=== PATIENT | female | born 1960 | race Caucasian/White ===

== ENCOUNTER 2019-05-15 09:08 | Emergency (ER) | payer OTHER, SELFPAY ==
[2019-05-15 09:10] VITALS: BP 94/55; PULSE 63; RESP 16; TEMP 36.7; O2SAT 93; BMI 27.1
--- NOTE | 2019-05-15 09:14 | NURSING ---
NO OLD EKGS
--- NOTE | 2019-05-15 09:24 | EKG12_ITS ---
Test Reason : CP Blood Pressure : / mmHG Vent. Rate : 053 BPM Atrial Rate : 053 BPM P-R Int : 158 ms QRS Dur : 080 ms QT Int : 452 ms P-R-T Axes : 060 046 087 degrees QTc Int : 424 ms Sinus bradycardia Nonspecific ST and T wave abnormality Abnormal ECG Confirmed by KYLER VANCE, CARSON ([id number]), make up editor RADHA ALDRIDGE ([id number]) on 05/22/2019 9:34:01 A M Referred By: PENG Confirmed By:OTILIA CHÁVEZ MD
--- NOTE | 2019-05-15 09:25 | CT_ITS ---
We are attempting to reach an attending provider to discuss findings. An addendum with communication details will be sent when the communication is complete. STUDY: CTA OF THE ABDOMINAL AORTA AND BILATERAL LOWER EXTREMITIES REASON FOR EXAM: Female, 58 years old. RADIATION DOSAGE (If Supplied By Facility): CTDIvol = ( 9.96 ) mGy, DLP = ( 808.91 ) mGycm TECHNIQUE: Axial CT angiography multi-detector data acquisition was obtained from the aortic arch to the aortic bifurcation following intravenous administration of IV Isovue 370 100. Axial images and MIP images were reconstructed from the axial data set. Post-processing of the angiographic images was performed, with multiplanar reformation and 3D reconstruction. Individualized dose optimization techniques were used for this CT. TECHNICAL QUALITY: Good COMPARISON: None. Descriptors of Narrowing: None (0%) Mild (< 50%) Moderate (50-70%) Severe (70-90%) Subtotal/Total Occlusion (90-100%) Non-Evaluable (technically non-diagnostic FINDINGS: The pulmonary parenchyma was carefully examined and appears to be normal. The heart is normal. There is extensive aortic dissection extending from the ascending aorta through the aortic arch. The ascending aorta measures 4.25 x 4.57 cm in maximal AP and transverse dimension. This dissection extends from the sinus of Valsalva superior through the aortic arch into the descending thoracic aorta there is a normal branch pattern of the aortic arch. Bone scanning windows through the thorax show the ribs and thoracic spine to be normal. No extrathoracic masses or lesions are seen. The visualized liver, spleen, and adrenals are normal.. Additional CT cuts were continued through the abdomen. The liver is normal. The spleen is normal. The adrenal glands are normal. The head, body, and tail of the pancreas are normal. The right kidney is normal with no evidence of calyceal calculi, masses, or obstructive uropathy seen. There is devascularization of the left kidney due to an extensive type III aortic dissection. .No periaortic lymphadenopathy is seen. No abdominal masses or lesions are identified. The aortic dissection including the true and false lumen are visualized. The celiac axis originates off the true lumen and the superior mesenteric artery also originates off the true lumen. The right renal artery originates off the true lumen but there is occlusion of the origin of the left renal artery, with devascularization of the right kidney. Inferior mesenteric artery appears to be patent and probably originates off of the true lumen of the aortic dissection. The aortic dissection extends inferiorly and appears to be causing about 95% occlusion of the origin of the left common iliac artery. The distal left common iliac artery reconstitutes in the right common iliac artery appears to be normal. The external iliac arteries appear patent but the left external iliac and common femoral artery are small. The right superficial femoral artery is patent down to the level of the popliteal artery and the arteries of the right trifurcation are visualized. On the left side, there appears to be thrombotic occlusion of the distal left superficial femoral artery at the junction of the left superficial femoral artery and popliteal artery and no peripheral arterial runoff into the left lower extremity is seen. CT/CTA Abd w/Runoff W/WO Contrast IMPRESSION: 1. Extensive type III aortic dissection involving the ascending aorta, aortic arch, descending aorta and the abdominal aorta extending down into the left common iliac artery at its origin probably causing 95% stenosis of this vessel. 2. Thrombotic occlusion and a devascularization of the left kidney. 3. Extensive aortic dissection extends down the abdominal aorta and is causing high-grade stenosis of the left common iliac artery. 4. Thrombotic occlusion of the distal left superficial femoral artery at its junction with the left popliteal artery with no peripheral arterial runoff in the distal left lower extremity. I personally visited the emergency room and called to the ER doctor, Dr. Hawkins and gave her the report at 10:15 AM on 05/15/2019. Electronically Signed: Slade Keenan, at 10:23 EDT Tel , Service support ,
--- NOTE | 2019-05-15 09:27 | ED.VIS.GEN ---
History of Present Illness Chief Complaint: Chest Pain Informant: Patient Onset: Today Context: Sudden Onset Timing: Intermittent Current Severity: Severe Maximum Severity: Severe Narrative: Is a 58-year-old female that denies any past medical history presenting from work for chest pain. Patient states she was at work when she suddenly had chest pain that radiated to her back. She states when she got here the chest pain resolved but then she started having pain in her left hip as well as weakness and loss of sensation in her left lower extremity. Patient states he is never had any like this before. She states she cannot move her left lower leg. Patient states she does not take any medications. She denies any other complaints at this time. She did have some associated shortness of breath with the chest pain started. Nursing notes on patient ride her left distal foot was white and cool. It improved when I saw her. Past Medical History - Allergies and Home Meds Allergies/Adverse Reactions: Allergies No Known Allergies Allergy (Verified 05/15/19 09:53) Primary Care Physician: Jerson Miller DO [Primary Care Provider] - Past Medical History: None Surgical History: no surgical history Smoking Status: Current every day smoker Review of Systems All systems negative except as indicated Cardiovascular: Reports: Chest pain Respiratory: Reports: Dyspnea Musculoskeletal: Reports: - - Left hip pain Neurological: Reports: Weakness - left LE, Parasthesia - left LE, Numbness - LLE Physical Exam Vital Signs/Narrative: Vital Signs Temp Pulse Resp BP Pulse Ox 05/15/19 09:10 98.1 F 63 16 94/55 L 93 Inital Vital Signs reviewed: Yes General: Well nourished, Well developed, No Acute Distress Head: Normocephalic, Atraumatic Eyes: Perrl, EOMI ENT: Moist mucous membranes, No rhinorrhea Neck: Supple, Nontender Cardiovascular: Regular rate, Regular rhythm, No murmurs, - - 2+ right femoral pulse, nonpalpable left femoral pulse Respiratory: No distress, Chest nontender, - - Course Breath sounds throughout Abdomen: Soft, Nontender, Nondistended, Normal bowel sounds. Negative for: Pulsatile mass Back: Nontender, Normal Inspection Extremities: Nontender, No edema Skin: No rash, Pallor - Left first through fourth toes Neurological: Alert, Oriented x3, Cranial nerves II-XII grossly intact, - - Patient unable to lift left lower leg off the bed and cannot wiggle her toes, foot drop to the bed immediately when raised, normal strength of the right lower extremity. Decreased sensation diffusely of the left lower extremity except to sharp touch Psychological: Normal affect, Normal Mood Diagnostic/Tx/Re-eval Laboratory Data 05/15/19 05/15/19 05/15/19 09:23 09:23 09:23 WBC 8.0 RBC 4.51 Hgb 13.1 Hct 39.8 MCV 88.2 MCH 29.0 MCHC 32.9 RDW Std Deviation 38.7 RDW Coeff of [place]uki 12.0 Plt Count 184 MPV 9.7 Immature Gran % (Auto) 0.200 Neut % (Auto) 66.6 Lymph % (Auto) 27.8 [place] % (Auto) 4.5 Eos % (Auto) 0.4 Baso % (Auto) 0.5 Absolute Neuts (auto) 5.4 Absolute Lymphs (auto) 2.23 Nucleated RBC % 0 PT 14.0 INR 1.1 APTT 24.7 Sodium 140 Potassium 3.8 Chloride 108 H Carbon Dioxide 27.0 Anion Gap 5 BUN 15 Creatinine 0.79 Estim Creat Clear Calc 55.76 Est GFR (MDRD) Af Amer 96 Est GFR (MDRD) Non-Af 79 BUN/Creatinine Ratio 19.0 Glucose 124 H Calcium 8.7 Total Bilirubin 0.40 AST 14 L ALT 16 Alkaline Phosphatase 89 Troponin I < 0.015 Total Protein 6.5 Albumin 3.5 Globulin 3.0 Albumin/Globulin Ratio 1.2 Urine Color Urine Clarity Urine pH Ur Specific [place] Urine Protein Urine Glucose (UA) Urine Ketones Urine Occult Blood Urine Nitrite Urine Bilirubin Urine Urobilinogen Ur Leukocyte Esterase 05/15/19 09:50 WBC RBC Hgb Hct MCV MCH MCHC RDW Std Deviation RDW Coeff of [place] Plt Count MPV Immature Gran % (Auto) Neut % (Auto) Lymph % (Auto) [place] % (Auto) Eos % (Auto) Baso % (Auto) Absolute Neuts (auto) Absolute Lymphs (auto) Nucleated RBC % PT INR APTT Sodium Potassium Chloride Carbon Dioxide Anion Gap BUN Creatinine Estim Creat Clear Calc Est GFR (MDRD) Af Amer Est GFR (MDRD) Non-Af BUN/Creatinine Ratio Glucose Calcium Total Bilirubin AST ALT Alkaline Phosphatase Troponin I Total Protein Albumin Globulin Albumin/Globulin Ratio Urine Color Yellow Urine Clarity Clear Urine pH 7.0 Ur Specific [place] 1.005 Urine Protein 30 H Urine Glucose (UA) Normal Urine Ketones Negative Urine Occult Blood Negative Urine Nitrite Negative Urine Bilirubin Negative Urine Urobilinogen Normal Ur Leukocyte Esterase Negative Diagnostic Data Abdomen/Pelvis CTA 05/15/19 09:25 IMPRESSION: 1. Extensive type III aortic dissection involving the ascending aorta, aortic arch, descending aorta and the abdominal aorta extending down into the left common iliac artery at its origin probably causing 95% stenosis of this vessel. 2. Thrombotic occlusion and a devascularization of the left kidney. 3. Extensive aortic dissection extends down the abdominal aorta and is causing high-grade stenosis of the left common iliac artery. 4. Thrombotic occlusion of the distal left superficial femoral artery at its junction with the left popliteal artery with no peripheral arterial runoff in the distal left lower extremity. I personally visited the emergency room and called to the ER doctor, Dr. Hawkins and gave her the report at 10:15 AM on 05/15/2019. Electronically Signed: Slade Keenan, at 10:23 EDT Tel , Service support , Chest CTA 05/15/19 09:25 IMPRESSION: 1. Extensive type III aortic dissection involving the ascending aorta, aortic arch, descending aorta and the abdominal aorta extending down into the left common iliac artery at its origin probably causing 95% stenosis of this vessel. 2. Thrombotic occlusion and a devascularization of the left kidney. 3. Extensive aortic dissection extends down the abdominal aorta and is causing high-grade stenosis of the left common iliac artery. 4. Thrombotic occlusion of the distal left superficial femoral artery at its junction with the left popliteal artery with no peripheral arterial runoff in the distal left lower extremity. I personally visited the emergency room and called to the ER doctor, Dr. Hawkins and gave her the report at 10:15 AM on 05/15/2019. Electronically Signed: Slade Keenan, at 10:23 EDT Tel , Service support , - Rhythm Strip Rhythm Strip: Sinus bradycardia Rate: 53 Ectopy: None - EKG Initial EKG Interpretation: Sinus Bradycardia, - - Sinus bradycardia at a rate of 53 MA interval 158 QRS 80 QT/QTc 452/[address] segments - Medical Decision Making She is evaluated for chest pain that radiated to her back. Upon arrival patient suddenly had loss of strength and sensation in her left lower extremity. On evaluation patient did not have a palpable femoral pulse. Patient was immediately sent to CT for rule out aortic dissection. Patient was hemodynamically stable and initially had low normal blood pressure and heart rate. CT initially interpreted by myself which did show a type a dissection. I immediately called the transfer line and discussed with the CVICU doctor. Patient will be out of wants to [facility]. Accepting physician is Dr. Cornejo. Patient started on IV fluids. Repeat vital signs show her blood pressure has increased to 136 systolic. Fluids are stopped and patient is started on esmolol drip. Patient does not have any significant change in her hemodynamics while in the emergency room and is stable at time of transfer. Signout report is given to [facility] for team. Patient is transferred emergently to [facility] by helicopter. Patient and son are informed of her diagnosis and that she will require emergent surgery. They are agreeable with this. - Critical Care Time Critical care time (excluding procedures): 30-74 minutes, Including time spent:, Discussing w/Patient &/or Family/Supervisor [employer], Discussing w/Consultants, Arranging Admission or Transfer ED Disposition - Plan for ED Patient: Disposition: [facility] - Main Diagnosis: Aortic dissection Referrals: Jerson Miller DO [Primary Care Provider] -
[2019-05-15 09:37] LABS: Absolute Lymphocyte Count 2.23 X10^3/uL (0.83-4.51); Absolute Neutrophil Count 5.4 X10^3/uL (2.0-7.7); Basophil# 0.04 X10^3/uL; Basophil% 0.5 % (0-1); Eosinophil# 0.03 X10^3/uL; Eosinophils% 0.4 % (0-5); Hematocrit 39.8 % (37-47); Hemoglobin 13.1 g/dL (12.0-15.0); Lymphocyte # 2.23 X10^3/ul (4.0); Lymphocyte % 27.8 % (19-41); Mean Corp Hgb Conc 32.9 g/dL (32-36); Mean Corpuscular Volume 88.2 fL (81-99); Mean Platelet Vol. 9.7 fl (6.2-12.0); Monocyte# 0.36 X10^3/uL; Monocyte% 4.5 % (0-10); NRBC Flagged by Analyzer 0 % (0-5); Neutrophil # 5.35 X10^3/uL (2.7-7.7); Neutrophil % 66.6 % (47-70); Platelet Count 184 K/mm3 (150-450); RBC Distribution Width SD 38.7 fl (35.1-43.9); Red Blood Count 4.51 M/mm3 (4.2-5.4)
--- NOTE | 2019-05-15 09:40 | NURSING ---
CALLING [facility], TALKED TO ARIA.
[2019-05-15] MEDS: 0.9% Normal Saline 1,000 ML 1000 ML IV (09:41)
[2019-05-15 09:47] LABS: International Normalized Ratio 1.1
--- NOTE | 2019-05-15 09:49 | NURSING ---
[facility] COMING IN 30 MIN
[2019-05-15 09:53] LABS: ALB/GLOB Ratio 1.2 RATIO (0.9-2.4); AST(SGOT) 14 U/L (15-37); Alanine Aminotransfer ALT/SGPT 16 U/L (13-56); Albumin, Serum 3.5 g/dL (3.2-5.0); Alkaline Phosphatase 89 U/L (45-117); Anion Gap 5 (5-15); BUN 15 mg/dL (7-18); Calcium,Total 8.7 mg/dL (8.5-10.1); Chloride 108 mmol/L (98-107); Creatinine, Serum 0.79 mg/dL (0.55-1.02); EST Glomerular Filtration Rate 79 mL/min (>60); Est Glom Filt Rate - Afr Amer 96 mL/min (>60); Estimated Creatinine Clearance 55.76 ml/min; Glucose 124 mg/dL (74-106); Partial Thromboplast Time 24.7 Seconds (24.1-36.2); Potassium 3.8 mmol/L (3.5-5.1); Protein, Total 6.5 g/dL (6.4-8.2); Sodium Level 140 mmol/L (136-145)
[2019-05-15 09:55] LABS: Bacteria 0 SEEN /hpf (None Seen); Mucous, Urine 0 SEEN /hpf (<or=2+); Red Blood Cells-Urine 0 SEEN /hpf (0-5); Squamous Epithelial Cells - UA 0 SEEN /hpf (5-10); White Blood Cells 0 SEEN /hpf (0-5)
[2019-05-15 10:01] LABS: Color, Urine Yellow (Yellow); Glucose, Dipstick Normal (Normal); Ketone-Dipstick Negative (Negative); Leukocyte Esterase-Dipstick Negative /ul (Negative); Nitrite-Dipstick Negative (Negative); Occult Blood-Urine Negative /ul (Negative); Protein-Dipstick 30 mg/dl (Negative); Specific Gravity, Urine 1.005 (1.002-1.030); Urine Bilirubin Dipstick Negative (Negative); Urine Clarity Clear (Clear); Urine Urobilinogen Normal (Normal)
[2019-05-15] MEDS: Morphine 4 MG/ML Syringe IV (10:03)
[2019-05-15 10:04] VITALS: BP 121/55; PULSE 68; RESP 14; O2SAT 99
[2019-05-15] MEDS: Esmolol 2,500 MG/250 ML IV.SOLN. 18.9 MG CONT INF (10:04)
[2019-05-15 10:09] VITALS: BP 119/58; PULSE 59; PULSE 69; RESP 12; RESP 17; O2SAT 99
[2019-05-15 10:14] VITALS: BP 129/56; PULSE 62; RESP 14; O2SAT 99
[2019-05-15 10:25] VITALS: BP 129/56; PULSE 64; RESP 17; O2SAT 99
== END 2019-05-15 10:25 | disposition short-term general hospital (02) ==
PROVIDERS: Emergency Provider Emergency Medicine; Family Provider Family Medicine; PCP Family Medicine
DX: I71.02 Dissection of abdominal aorta (principal); I71.01 Dissection of thoracic aorta; I71.03 Dissection of thoracoabdominal aorta; N28.0 Ischemia and infarction of kidney; I70.8 Atherosclerosis of other arteries; I82.412 Acute embolism and thrombosis of left femoral vein; F17.200 Nicotine dependence, unspecified, uncomplicated
CPT/HCPCS: 51702; 71275; 75635; 80053; 81001; 84484; 85025; 85610; 85730; 93005; 96365; 96374; 99285; J7030; Q9967; A4216

== ENCOUNTER 2019-06-10 14:34 | Emergency (ER) | payer OTHER, SELFPAY ==
[2019-06-10 14:35] VITALS: BP 136/78; PULSE 81; RESP 23; TEMP 37.3; O2SAT 96; BMI 25.0
--- NOTE | 2019-06-10 14:38 | EKG12_ITS ---
Test Reason : CP Blood Pressure : / mmHG Vent. Rate : 072 BPM Atrial Rate : 072 BPM P-R Int : 126 ms QRS Dur : 084 ms QT Int : 344 ms P-R-T Axes : 051 036 230 degrees QTc Int : 376 ms Normal sinus rhythm Possible Left atrial enlargement Left ventricular hypertrophy ST/T Wave Abnormality Consider LVH Repolarization; Myocardial Ischemia Abnormal ECG Confirmed by RADHA VANCE, MIKE ([id number]), editor sound RADHA ALDRIDGE ([id number]) on 06/12/2019 11:12:30 AM Referred By: PAULINA Confirmed By:MIKE GARCIA MD
[2019-06-10 15:10] LABS: Absolute Lymphocyte Count 2.25 X10^3/uL (0.83-4.51); Absolute Neutrophil Count 8.6 X10^3/uL (2.0-7.7); Basophil# 0.06 X10^3/uL; Basophil% 0.5 % (0-1); Eosinophil# 0.11 X10^3/uL; Eosinophils% 0.9 % (0-5); Hematocrit 35.6 % (37-47); Hemoglobin 11.4 g/dL (12.0-15.0); Lymphocyte # 2.25 X10^3/ul (4.0); Lymphocyte % 18.7 % (19-41); Mean Corpuscular Hgb 28.7 pg (27.0-32.0); Mean Corpuscular Volume 89.7 fL (81-99); Mean Platelet Vol. 9.2 fl (6.2-12.0); Monocyte# 0.93 X10^3/uL; Monocyte% 7.7 % (0-10); NRBC Flagged by Analyzer 0 % (0-5); Neutrophil # 8.64 X10^3/uL (2.7-7.7); Neutrophil % 71.7 % (47-70); Platelet Count 435 K/mm3 (150-450); RBC Distribution Width CV 13.1 % (11.6-14.6); RBC Distribution Width SD 42.9 fl (35.1-43.9); Red Blood Count 3.97 M/mm3 (4.2-5.4); White Blood Count 12.1 K/mm3 (4.4-11.0)
--- NOTE | 2019-06-10 15:30 | RAD_ITS ---
STUDY: X-RAY CHEST REASON FOR EXAM: Female, 58 years old. Back pain. Aortic aneurysm. TECHNIQUE: Single AP portable view of the chest. COMPARISON: None. FINDINGS: Small left pleural effusion with left basilar infiltrate. Small right pleural effusion. Sternal cerclage wires are present from a prior sternotomy. A clip device is seen in the region of the aortic valve. Normal mediastinum and beck. Normal visualized pulmonary arteries. A cavernous stent is seen in the region of the aortic arch. Normal visualized thoracic spine. Normal visualized ribs, clavicles, and shoulders. There is no demonstrated abnormality of the visualized soft tissue structures of the upper abdomen. RAD/Chest 1 View (Portable) IMPRESSION: Small bilateral pleural effusions with left basilar infiltration and/or atelectasis. Electronically Signed: Evan Simon, at 15:51 EST , Service support ,
[2019-06-10 15:33] LABS: ALB/GLOB Ratio 0.7 RATIO (0.9-2.4); AST(SGOT) 36 U/L (15-37); Alanine Aminotransfer ALT/SGPT 46 U/L (13-56); Albumin, Serum 3.3 g/dL (3.2-5.0); Alkaline Phosphatase 128 U/L (45-117); Anion Gap 8 (5-15); BUN 18 mg/dL (7-18); BUN/Creat Ratio 21.4 RATIO (10-20); Calcium,Total 9.6 mg/dL (8.5-10.1); Chloride 97 mmol/L (98-107); Creatinine, Serum 0.84 mg/dL (0.55-1.02); EST Glomerular Filtration Rate 74 mL/min (>60); Est Glom Filt Rate - Afr Amer 89 mL/min (>60); Estimated Creatinine Clearance 52.44 ml/min; Globulin 4.9 g/dL (2.2-4.2); Glucose 87 mg/dL (74-106); Potassium 3.8 mmol/L (3.5-5.1); Protein, Total 8.2 g/dL (6.4-8.2); Sodium Level 137 mmol/L (136-145)
--- NOTE | 2019-06-10 15:45 | CT_ITS ---
STUDY: CTA CHEST REASON FOR EXAM: Female, 58 years old. Back pain. Previous aortic dissection. RADIATION DOSAGE (If Supplied By Facility): CTDIvol = ( 5.26 ) mGy, DLP = ( 242.77 ) mGycm TECHNIQUE: The examination was performed with the intravenous administration of IV Isovue 370 100CC. Post-processing of the angiographic images was performed, with multiplanar reformation and 3D reconstruction. Individualized dose optimization techniques were used for this CT. COMPARISON: 05/15/2019. FINDINGS: Since previous exam the patient has had stent graft repair of thoracic aortic dissection. Stent graft is seen extending from the origin of the left carotid artery down to the proximal descending thoracic aorta. An additional stent is seen at the origin of the left subclavian artery. Normal appearance of the ascending aorta. Fluid density is seen surrounding the aortic arch likely from previous extravasation of blood and/or effusion. Below the level of the aortic stent, in the mid and distal descending thoracic aorta and in the visualized abdominal aorta, the dissection is still seen. There is contrast opacification of the original and false lumen. No significant extravasation of contrast or evidence for active bleeding. Normal enhancement of the main pulmonary artery and right and left pulmonary arteries. Normal enhancement of the bilateral peripheral pulmonary arteries. There is no demonstrated pulmonary embolism. Normal heart and pericardium. Sternal cerclage wires are present from a prior sternotomy. Normal mediastinum. Normal hilar regions. Moderate left pleural effusion. Prominent atelectasis of left lower lobe. Mild atelectasis in the medial right lung base. Evidence of diffuse centrilobular emphysema. No definite pneumonia. Normal osseous structures. Normal visualized upper abdomen. CT/CTA Chest W/WO Contrast IMPRESSION: Grossly satisfactory appearance of stent graft repair of aortic dissection since previous exam. Below the level of distal stent, in the mid and lower thoracic aorta, patency is seen about the [place] and false lumens. Moderate left pleural effusion with significant left lower lobe atelectasis. COPD and compressive atelectasis of the left lower lobe. Electronically Signed: Faisal Jacobson MD at 17:48 EST , Service support ,
--- NOTE | 2019-06-10 15:46 | ED.DCSUM_ITS ---
- ER Visit Summary Date of Service: 06/10/19 Chief Complaint: Chest and back pain History of Present Illness: The patient is a 58 F who presents with chest and back pain that is been getting worse over the past 3 days. Patient describes pain as sharp. Patient states the pain starts in her back and radiates around to her left lower chest. Patient states the pain is worse when she lays on her right side. Patient states pain improves when she bends forward and stretches her back. Patient admits to a cough. Patient admits to some heartburn and reflux. Patient denies any nausea or vomiting. Patient denies any shortness of breath or diaphoresis. Patient states she had a recent aortic dissection and repair. Physical Examination: Vital signs are stable. Patient is afebrile. Patient is in no acute distress. Oral mucosa is pink and moist. Neck is supple. Trachea is midline. There is no JVD. Heart was regular rate and rhythm. Lungs are clear and equal bilaterally. Abdomen is soft. Bowel sounds are normal. There is no tenderness. Cranial nerves II through XII are intact. There are no focal motor or sensory deficits noted. Test Results: EKG showed normal sinus rhythm with a rate of 72. There is left ventricular hypertrophy. There are no acute ST or T wave changes. Portable chest x-ray was obtained. There are mild bilateral pleural effusions with atelectasis. There is no acute cardiopulmonary process. CTA of the chest was obtained. There is no evidence of pulmonary embolism. The aortic graft is in place without any complications. There is no infiltrate noted. CBC showed a mild leukocytosis of 12.1. INR is 2.5. Troponin was normal. Comprehensive metabolic profile was within normal limits. Emergency Department Course and Treatment: Patient was given a dose of oxycodone here. Patient was given a prescription for short course of Percocet. Patient was instructed to follow-up with her primary care physician in 3 to 5 days. Patient understood and was agreeable with the plan. All questions were answered. Disposition: Discharge home Impression: Chest and back pain This note was generated with [employer] dictation software. It may contain incorrect words, spelling, and punctuation that were not noted in review of the chart prior to signing ED Disposition - Plan for ED Patient: Disposition: Home or Assisted Living Diagnosis: Thoracic back pain Instructions: CHEST PAIN, Uncertain Cause Prescriptions: Oxycodone HCl/Acetaminophen [Percocet 5/325] 1 tab PO Q6H PRN PRN 3 Days #12 tab PRN Reason: Pain Prescription Printed Referrals: Jerson Miller DO [Primary Care Provider] - 5-7 Days Additional Instructions: Your chest x-ray and CAT scan shows small pleural effusions bilaterally. These do not require drainage at this time.
[2019-06-10 16:03] VITALS: BP 146/67; PULSE 67; RESP 12; O2SAT 100
[2019-06-10] MEDS: Aspirin 81 MG TAB.CHEW 324 MG PO (16:23)
[2019-06-10 16:40] LABS: International Normalized Ratio 2.5; Prothrombin Time (Protime)PT. 27.4 SECONDS (11.7-14.9)
[2019-06-10 18:43] VITALS: BP 156/65; PULSE 75; RESP 15; O2SAT 96
[2019-06-10] MEDS: oxyCODONE 5 MG Tablet PO (18:44)
== END 2019-06-10 18:54 | disposition home or self-care (01) ==
PROVIDERS: Emergency Provider Emergency Medicine; Family Provider Family Medicine; PCP Family Medicine
DX: M54.6 Pain in thoracic spine (principal); R07.9 Chest pain, unspecified; H53.9 Unspecified visual disturbance; R05 Cough; R20.2 Paresthesia of skin; I51.7 Cardiomegaly; J90 Pleural effusion, not elsewhere classified; J98.11 Atelectasis; K21.9 Gastro-esophageal reflux disease without esophagitis; I48.91 Unspecified atrial fibrillation; Z86.79 Personal history of other diseases of the circulatory system; Z79.82 Long term (current) use of aspirin; Z79.01 Long term (current) use of anticoagulants; Z79.899 Other long term (current) drug therapy; Z87.891 Personal history of nicotine dependence
CPT/HCPCS: 71045; 71275; 80053; 84484; 85025; 85610; 93005; 99284; Q9967; A4216

== ENCOUNTER 2020-07-22 10:34 | Day surgery (SDC) | payer OTHER, SELFPAY ==
[2020-07-22 10:50] VITALS: BP 170/70; PULSE 64; RESP 16; TEMP 37.4; O2SAT 97; BMI 38.0
[2020-07-22] MEDS: Lactated Ringers 1,000 ML 100 ML IV ×2 (11:10→13:06)
[2020-07-22 11:13] VITALS: BMI 25.0
[2020-07-22] MEDS: Cefazolin 2 GM in 0.9% Normal Saline 100 ML IV (12:04)
--- NOTE | 2020-07-22 12:09 | HP.PCM_ITS ---
History of Present Illness Date of Admission: 07/22/20 Chief Complaint: right ureteal calculi The patient is a 60 year old female with obstruction of right ureter with stone. presents for ureteroscopy laser stone. Past Medical History Allergies No Known Allergies Allergy (Verified 07/22/20 10:48) Home Medications: Ambulatory Orders Medication Instructions Recorded Acetaminophen 650 mg PO Q6H PRN 06/10/19 Albuterol Inhaler [Ventolin Hfa 2 puff INHALATION Q6H PRN PRN 06/10/19 (SP)] Amlodipine [Norvasc] 5 mg PO DAILY 06/10/19 Aspirin 81 mg PO DAILY 06/10/19 Metoprolol Tartrate 50 mg PO DAILY 06/10/19 Multivitamin [Daily Jt] 1 ea PO DAILY 06/10/19 Ciprofloxacin [Cipro] 500 mg PO BID #6 tab 07/22/20 Hydrocodone/Acetaminophen [[place] 1 each PO Q4H PRN PRN 10 Days #14 07/22/20 5-325 Tablet] tablet Surgical History: no surgical history Smoking Status: Former smoker Tobacco Use: Non-smoker Review of Systems Constitutional: Denies: Chills, Fever, Weight Change HEENT: Denies: Head Aches, Sinus Congestion, Sinus Drainage Cardiovascular: Denies: Chest Pain, Palpitations Respiratory: Denies: Cough, Shortness of breath at rest, Sputum production Gastrointestinal: Denies: Abdominal Pain, Nausea, Vomiting Genitourinary: Denies: Dysuria Musculoskeletal: Denies: Joint Pain, Joint Tenderness Skin: Denies: Rash, Wounds Neurological: Denies: Numbness, Tingling, Focal weakness Psychiatric: Denies: Anxiety, Depression, Homicidal Ideations, Suicidal Ideati ons Hematologic/ Lymphatic: Denies: Easy Bruising, Easy Bleeding VTE Information - Inpt Only VTE Present on Admission: No - Physical Exam Vitals/I&O's: Vital Signs Temp Pulse Resp BP Pulse Ox 99.4 F H 64 16 170/70 H 97 07/22/20 10:50 07/22/20 10:50 07/22/20 10:50 07/22/20 10:50 07/22/20 10:50 Oxygen Delivery Method Room Air Weight: 85.5 kg Body Mass Index (BMI) 25.0 Intake and Output for Last 24 Hours 07/20/20 07/21/20 07/22/20 23:59 23:59 23:59 Intake Total 110 / 110 Balance 110 / 110 General: Alert, Oriented x3, Cooperative HEENT: Atraumatic, PERRLA, EOMI, Normocephalic Neck: Supple, No JVD, Negative Carotid Bruits Lungs: Clear to auscultation, Normal air movement Cardiovascular: Regular rate, No murmurs Abdomen: Bowel Sounds Present, Soft, Non Tender Extremities: No edema, Capillary Refill Less than 3 Seconds Skin: No rashes, No breakdown Musculoskeletal: No Tenderness to Palpation of Joints or Extremities Neurological: Cranial nerves II-XII grossly intact Psych/Mental Status: Normal Affect, Appropriate Microbiology Past 72 Hours 07/21/20 13:35 Interface Orders SARS-CoV-2 Antigen (Rapid) - Final Current Medications Lactated Ringer's () 1,000 mls @ 100 mls/hr IV .Q10H REGLA Last Admin: 07/22/20 11:10 Dose: 100 mls/hr Documented by: Assessment/Plan 60 yo female with stone plan for Right ureteroscopy laser stone and stent
--- NOTE | 2020-07-22 12:12 | DCINST_ITS ---
Discharge Diet: Light diet - advance as tolerated Discharge Activity: May not drive while taking narcotic pain medications. Call your doctor if your incision/area has: Sudden Increased Bleeding Call your doctor if you observe: Fever of 101 or Higher Suture Line Care: Avoid Pulling/Pushing, Avoid Pinching/Bending Allergies/Adverse Reactions: Allergies No Known Allergies Allergy (Verified 07/22/20 10:48) Medications to take at Discharge Acetaminophen 650 mg PO Q6H PRN 06/10/19 Albuterol Inhaler [Ventolin Hfa (SP)] 2 puff INHALATION Q6H PRN PRN 06/10/19 Amlodipine [Norvasc] 5 mg PO DAILY 06/10/19 Aspirin 81 mg PO DAILY 06/10/19 Metoprolol Tartrate 50 mg PO DAILY 06/10/19 Multivitamin [Daily Jt] 1 ea PO DAILY 06/10/19 Ciprofloxacin [Cipro] 500 mg PO BID #6 tab 07/22/20 Hydrocodone/Acetaminophen [Madison 5-325 Tablet] 1 each PO Q4H PRN PRN 10 Days #14 tablet 07/22/20 The following prescriptions were given: Ciprofloxacin [Cipro] 500 mg PO BID #6 tab Transmission Status: Pending to [facility] Hydrocodone/Acetaminophen [Madison 5-325 Tablet] 1 each PO Q4H PRN PRN 10 Days #14 tablet PRN Reason: Pain Score 1-10 Transmission Status: Sent to [facility] Primary Care Physician: Fabian Whitfield WOOL CARDER, WOOL CARDER-C [Primary Care Provider] - Test Results: Test results from this visit will be discussed in further detail at your follow- up appointment, if applicable. Please Follow Up With: Lenin Staley MD - [phone] When: please call to make an appointment.
--- NOTE | 2020-07-22 12:40 | OP.PCM_ITS ---
Report of Operation Date of Procedure: 07/22/20 Pre-Operative Diagnosis: Right distal ureteral calculi Post-Operative Diagnosis: The same Surgery/Procedure Performed:: Right ureteroscopy laser lithotripsy of stone and stent placement, right retrograde pyelogram and interpretation fluoroscopic images, balloon dilation of the right ureter. Description of Surgical Findings:: This is a patient who presents to the hospital for treatment for an obstructing stone in the distal ureter. The patient was discussed in the preoperative area how the surgery would be performed and we reviewed the risks and benefits of the surgery. The risk and benefits include the risk of failure to remove the stone completely and that the patient may need multiple procedures. We discussed the risk of an infection, the risk of bleeding. We discussed the very rare risk of injury to the ureter that would lead to further procedures such as perforation and damage of the distal ureter. The patient understands that if the stone is not able to be removed safely that we may abort the procedure and place a stent to hopefully come back another day to treat the stone. After full discussion with the patient the consent form was signed the side was marked appropriately and the patient was taken back to the operating room for the procedure. The patient was taken back to the operating room. After induction of anesthesia by the anesthesiology team the patient was placed in dorsolithotomy position. The genitals were prepped and draped in usual sterile fashion. I went into the bladder with a 21 Uzbek rigid cystourethroscope through the urethra. Upon entering the bladder I inspected the trigone the left and right ureteral orifice and the bladder itself. I then cannulated the right ureteral orifice and advanced a wire up into the kidney. Then over the wire I advanced a Pollick catheter and performed a retrograde pyelogram to delineate the anatomy and identify the stone location. Then a ureteral balloon dilator was advanced over the wire and the distal ureter was balloon dilated with a 12 Uzbek balloon dilator. After 3 minutes of dilating the balloon then the safety wire was left in place.. I then placed a second wire as a working wire and over the working wire I went in with the ureteroscope. I pulled out the working wire and then through the ureteroscope I engage the stone in the distal ureter with laser lithotripsy until the stone was lasered into tiny little pieces that should pass on their own. A another retrograde pyelogram was performed and no extravasation of contrast or perforation was identified in the ureter there was some mild irritation of the ureter where the stone was located. I then backed out of the ureter left the wire in place and then over the wire I placed a double coiled pigtail stent. The stent was advanced over the wire under direct fluoroscopic guidance and visual inspection with the cystoscope once the stent was in good position I pulled the wire and the stent coiled in the kidney and bladder in good position. I then drained the patient's bladder the cystoscope was removed and the patient was taken back to the recovery room in good position. The patient was given instructions to call the office for instructions on when to come to the office to have the stent removed. Type of Anesthesia:: General Drains: 6 Uzbek by 24 cm stent - Admit VTE Documentation VTE Present on Admission: No VTE Mechan Device Prophylaxis: SCD's
[2020-07-22 12:50] VITALS: BP 126/78; BP 170/70; PULSE 63; RESP 16; TEMP 36.8; O2SAT 97
[2020-07-22 13:00] VITALS: BP 159/84; BP 170/70; PULSE 63; RESP 16; O2SAT 98
[2020-07-22] MEDS: Ketorolac 15 MG/ML Vial IM (13:06)
[2020-07-22 13:09] VITALS: BP 170/70; BP 172/74; PULSE 64; RESP 16; TEMP 36.4; O2SAT 94
[2020-07-22 14:05] VITALS: BP 145/77; BP 170/70; PULSE 65; RESP 16; TEMP 36.1; O2SAT 100
[2020-07-22] MEDS: HYDROcodone Bitartrate/Apap 5/325 Tablet PO (14:24)
[2020-07-22 14:32] VITALS: BP 170/70
== END 2020-07-22 14:36 | disposition home or self-care (01) ==
LOC: SDC 10:35 → AC 10:35
PROVIDERS: PCP Nurse Practitioner Family; Referring Provider Urology; Visit Provider Urology
PROC: 0TJ98ZZ Inspection of Ureter, Via Natural or Artificial Opening Endoscopic (ICD-10-PCS; CPT 52352; principal; 2020-07-22 11:15)
DX: N13.2 Hydronephrosis with renal and ureteral calculous obstruction (principal); Z20.828 Contact with and (suspected) exposure to other viral communicable diseases; I10 Essential (primary) hypertension; J44.9 Chronic obstructive pulmonary disease, unspecified; E78.00 Pure hypercholesterolemia, unspecified; Z78.0 Asymptomatic menopausal state; Z87.442 Personal history of urinary calculi; Z79.82 Long term (current) use of aspirin; Z79.899 Other long term (current) drug therapy; Z87.891 Personal history of nicotine dependence
CPT/HCPCS: 00918; 52356; 76000; 87426; C9803; J7120; C1769; J2405

== ENCOUNTER → 2022-10-10 | Outpatient (CLI) | payer OTHER, SELFPAY ==
--- NOTE | 2022-10-10 13:24 | CT_ITS ---
STUDY: LOW DOSE CT LUNG CANCER SCREENING REASON FOR EXAM: Female, 62 years old. h/o Tobacco Dependency -- Pt request to be completed at [facility] RADIATION DOSAGE (If Supplied By Facility): CTDIvol = ( 3.02 ) mGy, DLP = ( 117.39 ) mGycm TECHNIQUE: No contrast was administered. Low dose technique was utilized (average mAS-38 and kVp 120). 1.25 mm axial source images with a slice interval of 1.25-mm were reconstructed in lung windows. 2.5 mm axial source images with a slice interval of 2.5-mm were reconstructed in lung windows. 5.0 mm axial source images with a slice interval of 5.0-mm were reconstructed in soft tissue windows. COMPARISON: Comparison is made with prior study dated June 10, 2019. NODULES: No suspicious nodules are seen. Emphysema: Hyperinflation. Emphysematous changes with linear scarring in the right upper lobe. Minimal scarring at the lung bases as well. Endobronchial lesion: None Aorta: Atherosclerotic plaque formation. The patient is status post aortic stent placement extending from the mid and distal descending thoracic aorta and aortic arch. CORONARY ARTERIES: Coronary artery calcification is seen. Prior CABG. Heart: Unremarkable Pulmonary artery: Unremarkable Mediastinal nodes: Unremarkable Other chest and abdominal findings: Unremarkable CT/Low Dose CT Lung Screening IMPRESSION: Lung-RADS category 2 - Continue annual screening with LDCT in 12 months. IMPORTANT NOTES FOR USE: ACR Lung-RADS Version 1.1 Assessment Categories Release Date: 2018 Category: Coded 0-4 bases on nodule(s) with highest degree of suspicion. Negative screen is defined as categories 1 and 2; a positive screen is defined as categories 3 and 4. Category 3 and 4A nodules that are unchanged on interval CT should be coded as category 2, and individuals returned to screening in 12 months. Category 4X: Category 3 or 4 nodules with additional imaging findings that increase the suspicion of lung cancer, such as spiculation, GGN that doubles in size in 1 year, enlarged lymph notes, etc. Category Modifiers: S (significant finding unrelated to lung cancer) Electronically Signed: Evan Simon MD at 15:13 EST ,
== END | disposition home or self-care (01) ==
PROVIDERS: PCP Nurse Practitioner Family; Referring Provider Internal Medicine Critical Care Medicine; Visit Provider Internal Medicine Critical Care Medicine
DX: F17.211 Nicotine dependence, cigarettes, in remission (principal)
CPT/HCPCS: 71271

== ENCOUNTER → 2022-10-17 | Outpatient (CLI) | payer OTHER, SELFPAY ==
--- NOTE | 2022-10-18 05:53 | PFTCOMP_ITS ---
COMPLETE PULMONARY FUNCTION TEST INTERPRETATION Brief HPI: Patient is a 62-year-old female, currently under the care of Dr. Richard, who presents to [facility] for complete pulmonary function tests secondary to diagnosis of COPD. Respiratory therapist reports good effort and reproducible results. Interpretation: Forced expiration spirometry shows a severe large airways obstructive ventilatory defect with an FEV1 of 39% predicted. There is no significant bronchodilator response by strict ATS criteria. Spirograms are of good quality and plateau slowly, indicating slowly emptying areas of the lungs. The respiratory flow volume loop shows decreased expiratory flow rates at all lung volumes consistent with airway obstruction. Lung volumes by body plethysmography show a normal total lung capacity at 4.26 L, 110% predicted. FRC and RV are elevated out of proportion. Lung volume regina urements are consistent with hyperinflation and air-trapping. Diffusion capacity by carbon monoxide is decreased at 45% predicted. The airway resistance is slightly elevated. No previous pulmonary function tests were available for review. Impression: Irreversible severe large airways obstructive ventilatory defect with a symmetric reduction in diffusion capacity, resulting in air trapping with hyperinflation, and a pattern consistent with COPD
== END | disposition home or self-care (01) ==
PROVIDERS: PCP Nurse Practitioner Family; Referring Provider Internal Medicine Critical Care Medicine; Visit Provider Internal Medicine Critical Care Medicine
DX: J44.9 Chronic obstructive pulmonary disease, unspecified (principal)
CPT/HCPCS: 94060; 94726; 94729